=== PATIENT | male | born 1995 | race Caucasian/White ===

== ENCOUNTER 2020-04-10 09:19 | Emergency (ER) | payer OTHER ==
[2020-04-10 09:30] VITALS: BP 154/68; PULSE 98; TEMP 97.8; BMI 26.2
[2020-04-10] MEDS ORDERED: DIPHTH,PERTUSS(ACELL),TET 0.5 ML DISP.SYRIN IM ONE ×3 (09:44→10:00)
[2020-04-10] MEDS ORDERED: FLUORESCEIN NA 1 EA STRIP ONE (10:40)
== END 2020-04-10 11:10 | disposition home or self-care (01) ==
LOC: JER 09:19
PROC: 0JQ10ZZ Repair Face Subcutaneous Tissue and Fascia, Open Approach (ICD-10-PCS; principal; 2020-04-10)
PROC: 3E0234Z Introduction of Serum, Toxoid and Vaccine into Muscle, Percutaneous Approach (ICD-10-PCS; 2020-04-10)
DX: S01.81XA Laceration without foreign body of other part of head, initial encounter (principal)
CPT/HCPCS: 90715; 99285-25

== ENCOUNTER 2020-04-15 09:49 | Emergency (ER) | payer OTHER ==
[2020-04-15 09:57] VITALS: BP 127/70; PULSE 76; TEMP 97.8; BMI 25.4
== END 2020-04-15 11:01 | disposition home or self-care (01) ==
LOC: JERFT 09:49
DX: Z48.02 Encounter for removal of sutures (principal)
CPT/HCPCS: 99282-25